=== PATIENT | female | born 1975 | race American Indian/Alaskan Native ===

== ENCOUNTER 2020-06-25 10:24 | Emergency (ER) | payer SELFPAY ==
--- NOTE | 2020-06-25 10:50 | Emergency Department Report ---
ED General Adult HPI - General Stated complaint: BLOOD PRESSURE CHECK Time Seen by Provider: 06/25/20 10:46 - History of Present Illness Initial comments: 44-year-old -[place]ian female patient presents with complaints of elevated blood pressure of 141/93 and intermittent headaches for the past 2 days. She reports Tylenol is helping with her headaches and denies any numbness/tingling/weakness in her limbs, vision changes, confusion, memory loss, or difficulty with speech/ambulation. She rates her current headache as a 3/10 in severity when it occurs and states that she ran out of her blood pressure medication a few days ago. Patient states she is takes amlodipine 10 mg for the past few years. No current headache per patient. Only past medical history is hypertension and anxiety per patient. She reports she is new to [place] and has not been able to establish treatment with a primary care provider yet. She states she is otherwise feeling well and denies any chest pain, shortness of breath, or swelling. - Related Data Previous Rx's Medication Instructions Recorded Last Taken Type amLODIPine 10 mg PO DAILY 30 Days #30 tab 06/25/20 Unknown Rx Allergies Allergy/AdvReac Type Severity Reaction Status Date / Time sulfamethoxazole AdvReac Hives Verified 06/25/20 10:49 [From ] trimethoprim [From ] AdvReac Hives Verified 06/25/20 10:49 ED Review of Systems ROS: Stated complaint: BLOOD PRESSURE CHECK Other details as noted in HPI Constitutional: denies: chills, fever Respiratory: denies: cough, shortness of breath Cardiovascular: denies: chest pain, edema Gastrointestinal: denies: abdominal pain, nausea, vomiting Musculoskeletal: denies: back pain Neurological: headache. denies: weakness, numbness, paresthesias, confusion, ab normal gait, vertigo Hematological/Lymphatic: denies: easy bleeding ED Past Medical Hx - Medications Home Medications: Home Medications Medication Instructions Recorded Confirmed Last Taken Type amLODIPine 10 mg PO DAILY 30 Days #30 tab 06/25/20 Unknown Rx ED Physical Exam - General General appearance: alert, in no apparent distress - Head Head exam: Present: atraumatic, normocephalic - Eye Eye exam: Present: normal appearance, PERRL, EOMI. Absent: scleral icterus - Neck Neck exam: Present: normal inspection - Respiratory Respiratory exam: Absent: respiratory distress - Cardiovascular Cardiovascular Exam: Present: regular rate, normal rhythm - Extremities Exam Extremities exam: Present: full ROM - Neurological Exam Neurological exam: Present: alert, oriented X3, normal gait. Absent: motor sensory deficit - Expanded Neurological Exam Expanded Cerebellar function: Romberg: Normal - Psychiatric Psychiatric exam: Present: normal affect, normal mood - Skin Skin exam: Present: warm, dry, intact, normal color. Absent: rash, cyanosis, diaphoretic ED Medical Decision Making - Medical Decision Making 44-year-old -[place]ian female patient presents with complaints of elevated blood pressure of 141/93 and intermittent headaches for the past 2 days. She reports Tylenol is helping with her headaches and denies any numbness/tingling/weakness in her limbs, vision changes, confusion, memory loss, or difficulty with speech/ambulation. She rates her current headache as a 3/10 in severity when it occurs and states that she ran out of her blood pressure medication a few days ago. Patient states she is takes amlodipine 10 mg for the past few years. No current headache per patient. Only past medical history is hypertension and anxiety per patient. She reports she is new to [place] and has not been able to establish treatment with a primary care provider yet. She states she is otherwise feeling well and denies any chest pain, shortness of breath, or swelling. Physical exam is normal. She denies any neurologic symptoms. Will refill amlodipine for now, however patient urged to make a follow-up appointment with a primary care provider for further treatment of her hypertension. Patient was provided with a referral to [facility] and given a health clinic list. She is well-appearing, her vitals are stable, she is stable for discharge home. Strict return precautions discussed in great detail with patient who verbalizes understanding. Critical care attestation.: If time is entered above; I have spent that time in minutes in the direct care of this critically ill patient, excluding procedure time. ED Disposition Clinical Impression: Essential hypertension, Intermittent headache Disposition: DC- TO HOME OR SELFCARE Is pt being admited?: No Condition: Stable Instructions: Hypertension (ED), Managing Your Hypertension, DASH Eating Plan, Hypertension, Adult, [id number] Prescriptions: amLODIPine 10 mg PO DAILY 30 Days #30 tab Referrals: [facility] [Provider Group] - 3-5 Days
[2020-06-25 10:52] VITALS: BP 170/100
== END 2020-06-25 11:59 | disposition home or self-care (01) ==
LOC: ED 10:24
DX: I10 Essential (primary) hypertension (principal); R51.9 Headache, unspecified; Z79.899 Other long term (current) drug therapy; Z88.2 Allergy status to sulfonamides; Z88.8 Allergy status to other drugs, medicaments and biological substances
CPT/HCPCS: 99282

== ENCOUNTER 2020-09-19 14:12 | Emergency (ER) | payer SELFPAY ==
[2020-09-19 16:15] VITALS: BP 126/73
--- NOTE | 2020-09-19 17:20 | Emergency Department Report ---
ED Recheck HPI - General Chief Complaint: High BP Stated Complaint: BLOOD PRESSURE HIGH Time Seen by Provider: 09/19/20 16:22 Source: patient Mode of arrival: Ambulatory Limitations: No Limitations - History of Present Illness Initial Comments: This is a 44-year-old female nontoxic, well nourished in appearance, no acute signs of distress presents to the ED with for blood pressure medication refill. Patient denies any symptoms or complaints. Patient denies any chest pain, shortness of breath, fever, chills, nausea, vomiting, headache or stiff neck. Patient stated she takes amlodipine 10 mg daily. Last dose was this morning. MD Complaint: medication refill request Returns Today for: request for prescription Symptoms Since Prior Visit: no new symptoms Associated Symptoms: none. denies: fever, chills, chest pain, shortness of breath, rash, malaise, nasuea, abdominal pain - Related Data Previous Rx's Medication Instructions Recorded Last Taken Type amLODIPine 10 mg PO DAILY 30 Days #30 tab 09/19/20 Unknown Rx Allergies Allergy/AdvReac Type Severity Reaction Status Date / Time sulfamethoxazole AdvReac Hives Verified 06/25/20 10:49 [From ] trimethoprim [From ] AdvReac Hives Verified 06/25/20 10:49 ED Review of Systems ROS: Stated complaint: BLOOD PRESSURE HIGH Other details as noted in HPI Comment: All other systems reviewed and negative Constitutional: denies: chills, fever Eyes: denies: eye pain, eye discharge, vision change ENT: denies: ear pain, throat pain Respiratory: denies: cough, shortness of breath, wheezing Cardiovascular: denies: chest pain, palpitations Endocrine: no symptoms reported Gastrointestinal: denies: abdominal pain, nausea, diarrhea Genitourinary: denies: urgency, dysuria, discharge Musculoskeletal: denies: back pain, joint swelling, arthralgia Skin: denies: rash, lesions Neurological: denies: headache, weakness, paresthesias Psychiatric: denies: anxiety, depression Hematological/Lymphatic: denies: easy bleeding, easy bruising ED Past Medical Hx - Past Medical History Hx Hypertension: Yes Additional medical history: anxiety - Social History Smoking Status: Current Every Day Smoker Substance Use Type: Alcohol - Medications Home Medications: Home Medications Medication Instructions Recorded Confirmed Last Taken Type amLODIPine 10 mg PO DAILY 30 Days #30 tab 09/19/20 Unknown Rx ED Physical Exam - General Limitations: No Limitations General appearance: alert, in no apparent distress - Head Head exam: Present: atraumatic, normocephalic - Eye Eye exam: Present: normal appearance - Neck Neck exam: Present: normal inspection, full ROM. Absent: lymphadenopathy - Respiratory Respiratory exam: Present: normal lung sounds bilaterally. Absent: respiratory distress, wheezes, rales, rhonchi, stridor, chest wall tenderness, accessory muscle use, decreased breath sounds, prolonged expiratory - Cardiovascular Cardiovascular Exam: Present: regular rate, normal rhythm, normal heart sounds. Absent: bradycardia, tachycardia, irregular rhythm, systolic murmur, diastolic murmur, rubs, gallop - GI/Abdominal GI/Abdominal exam: Present: soft. Absent: distended, tenderness - Extremities Exam Extremities exam: Present: full ROM - Back Exam Back exam: Present: full ROM - Neurological Exam Neurological exam: Present: alert, oriented X3, normal gait - Psychiatric Psychiatric exam: Present: normal affect, normal mood - Skin Skin exam: Present: warm, dry, intact, normal color. Absent: rash ED Course Vital Signs 09/19/20 16:14 Temperature 98.1 F Pulse Rate 60 Respiratory 18 Rate Blood Pressure 126/73 O2 Sat by Pulse 100 Oximetry - Reevaluation(s) Reevaluation #1: 09/19/20 17:19 Patient is speaking in full sentences with no signs of distress noted. ED Recheck MDM - Medical Decision Making I will refill patient's medication. Patient is stable and was examined by me. Vital signs are stable in the ER. Patient was instructed to follow-up with a primary care doctor in 3-5 days or if symptoms worsen and continue return to emergency room as soon as possible. At time of discharge, the patient does not seem toxic or ill in appearance. No acute signs of distress noted. Patient agrees to discharge treatment plan of care. No further questions noted by the patient. Critical care attestation.: If time is entered above; I have spent that time in minutes in the direct care of this critically ill patient, excluding procedure time. ED Disposition Clinical Impression: Medication refill Disposition: DC-01 TO HOME OR SELFCARE Is pt being admited?: No Does the pt Need Aspirin: No Condition: Stable Additional Instructions: Follow-up with a primary care doctor in 3-5 days or if symptoms worsen and continue return to emergency room as soon as possible. Prescriptions: amLODIPine 10 mg PO DAILY 30 Days #30 tab Referrals: PRIMARY CAREMD [Primary Care Provider] - 3-5 Days HEATHER LUJAN MD [Staff Physician] - 3-5 Days [facility] [Provider Group] - 3-5 Days Time of Disposition: 17:20
== END 2020-09-19 17:30 | disposition home or self-care (01) ==
LOC: ED 14:12
DX: I10 Essential (primary) hypertension (principal); F41.9 Anxiety disorder, unspecified; F17.200 Nicotine dependence, unspecified, uncomplicated; Z76.0 Encounter for issue of repeat prescription; Z88.8 Allergy status to other drugs, medicaments and biological substances; Z79.899 Other long term (current) drug therapy
CPT/HCPCS: 99281

== ENCOUNTER 2021-02-22 13:43 | Emergency (ER) | payer SELFPAY ==
[2021-02-22] MEDS ORDERED: ASPIRIN 325 MG TAB PO ONE (14:09)
[2021-02-22] MEDS ORDERED: FAMOTIDINE 20 MG TAB PO ONE (14:10)
--- NOTE | 2021-02-22 14:10 | Emergency Department Report ---
ED General Adult HPI - General Chief complaint: High BP Stated complaint: HIGH BLOOD PRESSURE PUI?: No Time Seen by Provider: 02/22/21 13:53 Source: patient Mode of arrival: Ambulatory Limitations: No Limitations - History of Present Illness Initial comments: 45-year-old female with no history of hypertension but has been compliant with amlodipine for the past 2 months presents to the ER today with concern of elevated blood pressure, and "heartburn". Patient states that she was at work today, she was feeling weird and had a "slight" headache and decided to check her blood pressure at work and it was 137/79. She states that her boss recommended that she come into the ER to get checked. She states that also she has been having "heartburn" in substernal/left chest area , off and on for the past couple days. She reports associated nausea but that was only today. She denies any shortness of breath, cough or abdominal pain. She denies any fever or chills. She has not tried any heartburn medication. She states that she flew to [place] about 1 week ago, but she reports no calf pain or lower extremity swelling. She is not on any control. She quit smoking about 2 months ago. She does smoke marijuana intermittently for her anxiety. She denies any other illicit drug use or any alcohol abuse. She reports family history of coronary artery disease specifically her mom and her grandmother. She states that she did have a treadmill stress test about 4 5 years ago while she was living in [place] and it was normal. Complaint: "heartburn"/Elevated blood pressure -: days(s) - Related Data Previous Rx's Medication Instructions Recorded Last Taken Type Famotidine [Pepcid] 20 mg PO BID #30 tablet 02/22/21 Unknown Rx amLODIPine 10 mg PO DAILY 30 Days #30 tab 02/22/21 Unknown Rx Allergies Allergy/AdvReac Type Severity Reaction Status Date / Time sulfamethoxazole AdvReac Hives Verified 02/22/21 13:48 [From ] trimethoprim [From ] AdvReac Hives Verified 02/22/21 13:48 ED Review of Systems ROS: Stated complaint: HIGH BLOOD PRESSURE Other details as noted in HPI Comment: All other systems reviewed and negative Constitutional: denies: chills, fever Eyes: denies: eye pain, eye discharge, vision change ENT: denies: ear pain, throat pain Respiratory: denies: cough, shortness of breath, SOB with exertion, SOB at rest, wheezing Cardiovascular: chest pain. denies: palpitations, dyspnea on exertion, edema, syncope, paroxysmal nocturnal dyspnea Endocrine: no symptoms reported Gastrointestinal: nausea. denies: abdominal pain, vomiting, diarrhea, constipation, hematemesis, hematochezia Genitourinary: denies: urgency, dysuria, frequency, hematuria, discharge, abnormal menses, dyspareunia Musculoskeletal: denies: back pain, joint swelling, arthralgia, myalgia Skin: denies: rash, lesions, change in color, change in hair/nails, pruritus Neurological: denies: headache, weakness, numbness, paresthesias, confusion, abnormal gait, vertigo Psychiatric: denies: anxiety, depression, auditory hallucinations, visual hallucinations, homicidal thoughts, suicidal thoughts Hematological/Lymphatic: denies: easy bleeding, easy bruising, swollen glands ED Past Medical Hx - Past Medical History Hx Hypertension: Yes Additional medical history: anxiety - Social History Smoking Status: Current Every Day Smoker Substance Use Type: Alcohol - Medications Home Medications: Home Medications Medication Instructions Recorded Confirmed Last Taken Type Famotidine [Pepcid] 20 mg PO BID #30 tablet 02/22/21 Unknown Rx amLODIPine 10 mg PO DAILY 30 Days #30 tab 02/22/21 Unknown Rx ED Physical Exam - General Limitations: No Limitations General appearance: alert, in no apparent distress - Head Head exam: Present: atraumatic, normocephalic, normal inspection - Eye Eye exam: Present: normal appearance, PERRL, EOMI Pupils: Present: normal accommodation - ENT ENT exam: Present: normal exam, mucous membranes moist, TM's normal bilaterally - Neck Neck exam: Present: normal inspection, full ROM - Respiratory Respiratory exam: Present: normal lung sounds bilaterally. Absent: respiratory distress, wheezes, rales, rhonchi - Cardiovascular Cardiovascular Exam: Present: regular rate, normal rhythm, normal heart sounds - GI/Abdominal GI/Abdominal exam: Present: soft. Absent: distended, tenderness, guarding, rebound - Extremities Exam Extremities exam: Present: normal inspection, full ROM, normal capillary refill. Absent: pedal edema, calf tenderness - Neurological Exam Neurological exam: Present: alert, oriented X3, CN II-XII intact, normal gait - Psychiatric Psychiatric exam: Present: normal affect, normal mood - Skin Skin exam: Present: intact ED Course Vital Signs 02/22/21 02/22/21 13:46 19:03 Temperature 98.2 F Pulse Rate 69 65 Respiratory 14 15 Rate Blood Pressure 163/87 156/80 [Left] O2 Sat by Pulse 100 100 Oximetry ED Medical Decision Making - Lab Data Result diagrams: 02/22/21 14:22 02/22/21 14:22 - EKG Data EKG shows normal: sinus rhythm Rate: normal (71) - EKG Data Interpretation: normal EKG 02/22/21 18:53 Leo EKG done at 1842 shows normal sinus rhythm with a heart rate of 62, no change compared to first EKG. No STEMI or acute ischemic changes or significant dysrhythmias. - Radiology Data Radiology results: report reviewed Patient: GÉNESIS CALL MR#: [id number] : 1975 Acct:[id number] Age/Sex: 45 / F ADM Date: 02/22/21 Loc: ED Attending Dr: Ordering Physician: JAISON SAHNI Date of Service: 02/22/21 Procedure(s): XR chest routine 2V Accession Number(s): [id number] cc: JAISON SAHNI Fluoro Time In Minutes: CHEST 2 VIEWS INDICATION / CLINICAL INFORMATION: Chest Pain. COMPARISON: None available. FINDINGS: SUPPORT DEVICES: None. HEART / MEDIASTINUM: No significant abnormality. LUNGS / PLEURA: No significant pulmonary or pleural abnormality. No pneumothorax. ADDITIONAL FINDINGS: No significant additional findings. IMPRESSION: 1. No acute findings. Signer Name: Yariel Webb MD Signed: 02/22/2021 3:20 PM Workstation Name: [id number] Transcribed By: DT Dictated By: Tian Webb MD Electronically Authenticated By: Tian Webb MD Signed Date/Time: 02/22/21 1520 DD/ 1520 TD/TT: - Medical Decision Making Work-up reviewed--CBC, lipase and CMP unremarkable. Troponin x2 normal. Chest x-ray shows nothing acute. EKG x2 shows normal sinus rhythm without any STEMI or other acute ischemic changes or significant dysrhythmias. Patient currently sitting in the recliner comfortably playing on her phone. She denies any chest discomfort or heartburn currently. She is not in any signifi cant distress. She is neurologically intact with a normal gait. Repeat vital signs shows persistent elevation to her blood pressure, nothing significant require any emergent treatment, but the remaining vital signs have been stable. Heart score 2; PERC score 0 At this time I do not suspect unstable angina/LA, PE, aortic dissection, TIA/CVA or any other acute emergent conditions warranting any additional testing or admission at this time. Discussed all results with patient. Patient will be re started on amlodipine. She will be given referral to primary care doctor as well as a academic associate for further outpatient cardiac testing including stress test and echo. She will also be given Pepcid just in case she is really having reflux type symptoms. Patient understands to return to the ER if at any point her symptoms worsens. Patient stable at time of discharge. Critical care attestation.: If time is entered above; I have spent that time in minutes in the direct care of this critically ill patient, excluding procedure time. ED Disposition Clinical Impression: Nonspecific chest pain, History of hypertension, Noncompliance with medication regimen Disposition: HOME / SELF CARE / HOMELESS Is pt being admited?: No Does the pt Need Aspirin: No Condition: Stable Instructions: Nonspecific Chest Pain, Adult, Managing Your Hypertension Additional Instructions: I recommend that you start taking your amlodipine daily as prescribed. I also recommend taking the pepcid as prescribed as this could relate to GERD. I do recommend close follow-up with the primary care doctor listed in your discharge instructions as well as the academic associate for further evaluation including continued monitoring of your blood pressure and refills and further cardiac testing including stress test and possible echo.. Return immediately to the ER if at any point your symptoms worsens in any way Prescriptions: amLODIPine 10 mg PO DAILY 30 Days #30 tab Famotidine [Pepcid] 20 mg PO BID #30 tablet Referrals: YAIMA RUIZ MD [Staff Physician] - 3-5 Days (Primary care physician) SUN SELBY MD [Staff Physician] - 3-5 Days (Hook Up) Forms: Work/School Release Form(ED) Time of Disposition: 18:25 HEART Score - HEART Score History: Slightly suspicious EKG: Normal Age: 45-65 Risk factors: 1-2 risk factors Troponin: Troponin T < 0.010 ng/mL (0.00-0.029) 02/22/21 17:10 Troponin: < normal limit HEART Score: 2 - Critical Actions Critical Actions: 0-3 pts:0.9-1.7%risk of adverse cardiac event.Candidate for discharge
[2021-02-22 14:59] LABS: Hematocrit 37.4 % (30.3-42.9); Hemoglobin 11.6 gm/dl (10.1-14.3); Mean Corpuscular HGB Conc 31 % (30-34); Mean Corpuscular Volume 85 fl (79-97); Platelet Count 279 K/mm3 (140-440); Red Blood Count 4.42 M/mm3 (3.65-5.03)
[2021-02-22 15:16] LABS: Alanine Aminotransferase 7 units/L (7-56); Albumin 4.1 g/dL (3.9-5); Blood Urea Nitrogen 8 mg/dL (7-17); Calcium 9.4 mg/dL (8.4-10.2); Hemolysis Index 13
[2021-02-22 15:18] LABS: BUN/Creatinine Ratio 13
--- NOTE | 2021-02-22 15:25 | XRay Report ---
CHEST 2 VIEWS INDICATION / CLINICAL INFORMATION: Chest Pain. COMPARISON: None available. FINDINGS: SUPPORT DEVICES: None. HEART / MEDIASTINUM: No significant abnormality. LUNGS / PLEURA: No significant pulmonary or pleural abnormality. No pneumothorax. ADDITIONAL FINDINGS: No significant additional findings. IMPRESSION: 1. No acute findings. Signer Name: Yariel Webb MD Signed: 02/22/2021 3:20 PM Workstation Name: [id number]
[2021-02-22 15:39] LABS: Giant Platelets Rare; Large Platelets 1+; RBC Morphology Normal; Total Cells Counted 100
[2021-02-22 15:40] LABS: Platelet Estimate Consistent w Auto
[2021-02-22 19:03] VITALS: BP 156/80
--- NOTE | 2021-02-23 10:33 | Electrocardiograph Report ---
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
--- NOTE | 2021-02-23 10:34 | Electrocardiograph Report ---
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
== END 2021-02-22 19:07 | disposition home or self-care (01) ==
LOC: ED 13:43
DX: I10 Essential (primary) hypertension (principal); R07.9 Chest pain, unspecified; Z91.14 Patient's other noncompliance with medication regimen; F17.200 Nicotine dependence, unspecified, uncomplicated
CPT/HCPCS: 36415; 71046; 80053; 83690; 84484; 84703; 85007; 85025; 93005; 99284

== ENCOUNTER 2021-07-10 09:29 | Emergency (ER) | payer SELFPAY ==
[2021-07-10 09:43] VITALS: BP 134/88
--- NOTE | 2021-07-10 09:54 | Emergency Department Report ---
ED General Adult HPI - General Chief complaint: High BP Stated complaint: HIGH BLOOD PRESSURE Time Seen by Provider: 07/10/21 09:53 Source: patient Mode of arrival: Ambulatory Limitations: No Limitations - History of Present Illness Initial comments: Ms. Maravilla is a 45-year-old female that comes to the emergency room for an amlodipine refill. She has been out for 2 weeks. She states she is only lived in the area 2 years and does not have a PCP. She denies chest pain or shortness of breath. Patient denies any symptoms to the triage nurse she is here wanting a refill. Patient is ambulatory, nontoxic and [id number] in triage. Severity scale (0 -10): 0 Improves with: none Worsens with: none Associated Symptoms: denies other symptoms Treatments Prior to Arrival: none - Related Data Previous Rx's Medication Instructions Recorded Last Taken Type Famotidine [Pepcid] 20 mg PO BID #30 tablet 02/22/21 Unknown Rx amLODIPine 10 mg PO DAILY 30 Days #30 tab 07/10/21 Unknown Rx Allergies Allergy/AdvReac Type Severity Reaction Status Date / Time sulfamethoxazole AdvReac Hives Verified 02/22/21 13:48 [From ] trimethoprim [From ] AdvReac Hives Verified 02/22/21 13:48 ED Review of Systems ROS: Stated complaint: HIGH BLOOD PRESSURE Other details as noted in HPI Comment: All other systems reviewed and negative ED Past Medical Hx - Past Medical History Previous Medical History?: Yes Hx Hypertension: Yes Additional medical history: anxiety - Surgical History Past Surgical History?: No - Family History Family history: no significant - Social History Smoking Status: Current Every Day Smoker Substance Use Type: Alcohol - Medications Home Medications: Home Medications Medication Instructions Recorded Confirmed Last Taken Type Famotidine [Pepcid] 20 mg PO BID #30 tablet 02/22/21 Unknown Rx amLODIPine 10 mg PO DAILY 30 Days #30 tab 07/10/21 Unknown Rx ED Physical Exam - General Limitations: No Limitations General appearance: alert, in no apparent distress - Head Head exam: Present: atraumatic, normocephalic - Eye Eye exam: Present: normal appearance - ENT ENT exam: Present: mucous membranes moist - Neck Neck exam: Present: normal inspection - Respiratory Respiratory exam: Present: normal lung sounds bilaterally. Absent: respiratory distress - Cardiovascular Cardiovascular Exam: Present: regular rate, normal rhythm. Absent: systolic murmur, diastolic murmur, rubs, gallop - GI/Abdominal GI/Abdominal exam: Present: soft, normal bowel sounds - Extremities Exam Extremities exam: Present: normal inspection - Back Exam Back exam: Present: normal inspection - Neurological Exam Neurological exam: Present: alert, oriented X3 - Psychiatric Psychiatric exam: Present: normal affect, normal mood - Skin Skin exam: Present: warm, dry, intact, normal color. Absent: rash ED Course Vital Signs 07/10/21 09:42 Temperature 98.3 F Pulse Rate 65 Respiratory 18 Rate Blood Pressure 134/88 O2 Sat by Pulse 100 Oximetry ED Medical Decision Making - Medical Decision Making Vital Signs 07/10/21 09:42 Temperature 98.3 F Pulse Rate 65 Respiratory 18 Rate Blood Pressure 134/88 O2 Sat by Pulse 100 Oximetry I have explained to the patient that we will no longer give medication refills. I told her I would do that this 1 time as a courtesy. However, to where she comes to the ER again that they would send her to primary care for refills. I have given her a referral to primary. On discharge exam patient has no complaints. Patient discharged home with discharge plan of care including diet, activity, medication and follow-up. She verbalizes understanding - Differential Diagnosis Acute on chronic hypertension Critical care attestation.: If time is entered above; I have spent that time in minutes in the direct care of this critically ill patient, excluding procedure time. ED Disposition Clinical Impression: Medication refill HTN (hypertension) Qualifiers: Hypertension type: unspecified Qualified Code(s): I10 - Essential (primary) hypertension Disposition: HOME / SELF CARE / HOMELESS Is pt being admited?: No Does the pt Need Aspirin: No Condition: Stable Instructions: Hypertension, Adult, Hypertension (ED) Additional Instructions: follow up with pcp Prescriptions: amLODIPine 10 mg PO DAILY 30 Days #30 tab Referrals: HEATHER LUJAN MD [Staff Physician] - 3-5 Days Time of Disposition: 09:54
== END 2021-07-10 10:27 | disposition home or self-care (01) ==
LOC: ED 09:29
DX: I10 Essential (primary) hypertension (principal); Z76.0 Encounter for issue of repeat prescription; F17.200 Nicotine dependence, unspecified, uncomplicated
CPT/HCPCS: 99282